=== PATIENT | female | born 1970 | race Hispanic/Latino ===

== ENCOUNTER → 2021-10-16 | Outpatient (CLI) | payer OTHER | LOC: US 09:56 | PROVIDERS: ATTEND Surgery | DX: R10.11 Right upper quadrant pain (principal) | CPT/HCPCS: 76705 ==

== ENCOUNTER → 2024-11-09 | Outpatient (REF) | payer OTHER | LOC: NM 08:52 | PROVIDERS: ATTEND Nurse Practitioner | DX: K29.70 Gastritis, unspecified, without bleeding (principal) | CPT/HCPCS: 78264; A9541 ==